=== PATIENT | female | born 1960 | race Caucasian/White ===

== ENCOUNTER → 2023-09-29 16:41 | Outpatient (REF) | payer OTHER, SELFPAY | LOC: RAD 16:41 | PROVIDERS: ATTENDING PHYSICIAN Internal Medicine Rheumatology; FAMILY PHYSICIAN Nurse Practitioner Adult Health | DX: M54.50 Low back pain, unspecified (principal) | CPT/HCPCS: 72114; 72202; 73502 ==

== ENCOUNTER → 2023-10-15 12:47 | Outpatient (REF) | payer OTHER, SELFPAY | LOC: HWRAD 12:47 | PROVIDERS: ATTENDING PHYSICIAN Internal Medicine Rheumatology; FAMILY PHYSICIAN Nurse Practitioner Adult Health | DX: M54.32 Sciatica, left side (principal); M54.50 Low back pain, unspecified; M88.89 Osteitis deformans of multiple sites; M99.84 Other biomechanical lesions of sacral region | CPT/HCPCS: 72193; Q9967 ==

== ENCOUNTER → 2023-10-21 10:42 | Outpatient (REF) | payer OTHER, SELFPAY ==
[2023-10-21 11:08] VITALS: BP 135/83; BP_SYST 82
[2023-10-21 11:46] LABS: INR 1.03; PT 13.6 Sec (11.4-14.6)
[2023-10-21 12:50] VITALS: BP 111/84; BP_SYST 65
[2023-10-21 12:57] VITALS: BP 111/84; BP_SYST 65
[2023-10-21 13:05] VITALS: BP 112/72
== END ==
LOC: RADI 10:42
PROVIDERS: ATTENDING PHYSICIAN Internal Medicine Rheumatology; FAMILY PHYSICIAN Nurse Practitioner Adult Health; REFERRING PHYSICIAN Internal Medicine Hematology & Oncology
DX: C79.89 Secondary malignant neoplasm of other specified sites (principal); C80.1 Malignant (primary) neoplasm, unspecified
CPT/HCPCS: 88305; 20206; 36415; 77012; 85610; 88333; 88341; 88342; 88360; 99152; 99153

== ENCOUNTER → 2023-11-01 09:05 | Outpatient (REF) | payer OTHER, SELFPAY | LOC: RCS 09:05 | PROVIDERS: ATTENDING PHYSICIAN Internal Medicine Hematology & Oncology; FAMILY PHYSICIAN Nurse Practitioner Adult Health | DX: C7A.1 Malignant poorly differentiated neuroendocrine tumors (principal); C78.7 Secondary malignant neoplasm of liver and intrahepatic bile duct; C79.51 Secondary malignant neoplasm of bone | CPT/HCPCS: 93306 ==

== ENCOUNTER → 2023-12-14 15:29 | Outpatient (REF) | payer BC, SELFPAY | LOC: RAD 15:29 | PROVIDERS: ATTENDING PHYSICIAN Internal Medicine Hematology & Oncology; FAMILY PHYSICIAN Nurse Practitioner Adult Health | DX: C78.7 Secondary malignant neoplasm of liver and intrahepatic bile duct (principal); C79.51 Secondary malignant neoplasm of bone; G89.3 Neoplasm related pain (acute) (chronic); C34.80 Malignant neoplasm of overlapping sites of unspecified bronchus and lung; M79.661 Pain in right lower leg; M79.605 Pain in left leg | CPT/HCPCS: 93970 ==

== ENCOUNTER 2024-04-17 13:59 | Outpatient (RCR) | payer BC, SELFPAY | END 2024-04-17 23:59 | disposition home or self-care (01) | LOC: RPT 13:59 | PROVIDERS: ATTENDING PHYSICIAN Nurse Practitioner Family; FAMILY PHYSICIAN Nurse Practitioner Adult Health | DX: R26.89 Other abnormalities of gait and mobility (principal); M62.81 Muscle weakness (generalized); Z73.6 Limitation of activities due to disability; C76.8 Malignant neoplasm of other specified ill-defined sites; C78.7 Secondary malignant neoplasm of liver and intrahepatic bile duct; C79.51 Secondary malignant neoplasm of bone; G89.3 Neoplasm related pain (acute) (chronic); M25.552 Pain in left hip; R20.0 Anesthesia of skin; R26.2 Difficulty in walking, not elsewhere classified | CPT/HCPCS: 97010; 97110; 97112; 97116; 97162; 97530 ==

== ENCOUNTER → 2024-05-08 11:21 | Outpatient (REF) | payer BC, SELFPAY | LOC: PET 11:21 | PROVIDERS: ATTENDING PHYSICIAN Nurse Practitioner Adult Health | DX: C7A.1 Malignant poorly differentiated neuroendocrine tumors (principal) | CPT/HCPCS: 78815; A9552 ==

== ENCOUNTER 2024-05-17 09:54 | Outpatient (RCR) | payer BC, SELFPAY | END 2024-05-17 23:59 | disposition home or self-care (01) | LOC: RPT 09:54 | PROVIDERS: ATTENDING PHYSICIAN Nurse Practitioner Family; FAMILY PHYSICIAN Nurse Practitioner Adult Health | DX: I89.0 Lymphedema, not elsewhere classified (principal); M25.552 Pain in left hip; R26.89 Other abnormalities of gait and mobility; C34.90 Malignant neoplasm of unspecified part of unspecified bronchus or lung; C78.7 Secondary malignant neoplasm of liver and intrahepatic bile duct; C79.51 Secondary malignant neoplasm of bone; G89.3 Neoplasm related pain (acute) (chronic); N39.46 Mixed incontinence; Z73.6 Limitation of activities due to disability | CPT/HCPCS: 97110; 97112; 97140; 97164; 97530 ==

== ENCOUNTER → 2024-06-22 15:33 | Outpatient (REF) | payer BC, SELFPAY | LOC: MRI 3T 15:33 | PROVIDERS: ATTENDING PHYSICIAN Internal Medicine Hematology & Oncology; FAMILY PHYSICIAN Nurse Practitioner Adult Health | DX: C78.7 Secondary malignant neoplasm of liver and intrahepatic bile duct (principal) | CPT/HCPCS: 72197; A9575 ==

== ENCOUNTER 2024-06-28 10:25 | Outpatient (RCR) | payer BC, SELFPAY | END 2024-06-28 23:59 | disposition home or self-care (01) | LOC: RPT 10:25 | PROVIDERS: ATTENDING PHYSICIAN Nurse Practitioner Family; FAMILY PHYSICIAN Nurse Practitioner Adult Health | DX: C78.7 Secondary malignant neoplasm of liver and intrahepatic bile duct (principal); C79.51 Secondary malignant neoplasm of bone; G89.3 Neoplasm related pain (acute) (chronic); M25.552 Pain in left hip; I89.0 Lymphedema, not elsewhere classified; N39.46 Mixed incontinence; Z73.6 Limitation of activities due to disability | CPT/HCPCS: 97110; 97112 ==

== ENCOUNTER → 2024-07-27 08:36 | Outpatient (REF) | payer BC, SELFPAY | LOC: PAVMRI 08:36 | PROVIDERS: ATTENDING PHYSICIAN Specialist; FAMILY PHYSICIAN Nurse Practitioner Adult Health | DX: M51.362 Other intervertebral disc degeneration, lumbar region with discogenic back pain and lower extremity pain (principal) | CPT/HCPCS: 72148 ==

== ENCOUNTER → 2024-08-01 09:12 | Outpatient (REF) | payer BC, SELFPAY | LOC: RAD 09:12 | PROVIDERS: ATTENDING PHYSICIAN Orthopaedic Surgery; FAMILY PHYSICIAN Nurse Practitioner Adult Health | DX: M87.052 Idiopathic aseptic necrosis of left femur (principal) | CPT/HCPCS: 78315; A9503 ==

== ENCOUNTER 2024-10-30 13:52 | Outpatient (RCR) | payer BC, SELFPAY | END 2024-10-30 23:59 | disposition home or self-care (01) | LOC: RPT 13:52 | PROVIDERS: ATTENDING PHYSICIAN Orthopaedic Surgery; FAMILY PHYSICIAN Nurse Practitioner Adult Health | DX: Z47.1 Aftercare following joint replacement surgery (principal); C78.7 Secondary malignant neoplasm of liver and intrahepatic bile duct; Z73.6 Limitation of activities due to disability; M62.89 Other specified disorders of muscle; Z96.642 Presence of left artificial hip joint | CPT/HCPCS: 97110; 97112; 97161; 97530 ==

== ENCOUNTER → 2024-11-22 10:48 | Outpatient (REF) | payer BC, SELFPAY | LOC: WDC 10:48 | PROVIDERS: ATTENDING PHYSICIAN Nurse Practitioner Adult Health | DX: Z12.31 Encounter for screening mammogram for malignant neoplasm of breast (principal) | CPT/HCPCS: 77063; 77067 ==

== ENCOUNTER → 2024-12-06 10:05 | Outpatient (REF) | payer BC, SELFPAY | LOC: PET 10:05 | PROVIDERS: ATTENDING PHYSICIAN Nurse Practitioner Adult Health | DX: C80.1 Malignant (primary) neoplasm, unspecified (principal); C7A.1 Malignant poorly differentiated neuroendocrine tumors | CPT/HCPCS: 78815; A9552 ==

== ENCOUNTER 2024-12-14 14:00 | Outpatient (RCR) | payer BC, SELFPAY | END 2024-12-14 23:59 | disposition home or self-care (01) | LOC: RPT 14:00 | PROVIDERS: ATTENDING PHYSICIAN Orthopaedic Surgery; FAMILY PHYSICIAN Nurse Practitioner Adult Health | DX: Z47.1 Aftercare following joint replacement surgery (principal); C78.7 Secondary malignant neoplasm of liver and intrahepatic bile duct; Z73.6 Limitation of activities due to disability; M62.89 Other specified disorders of muscle; Z96.642 Presence of left artificial hip joint; Z85.05 Personal history of malignant neoplasm of liver | CPT/HCPCS: 97110; 97112; 97140 ==

== ENCOUNTER 2024-12-18 06:21 | Day surgery (SDC) | payer BC, SELFPAY | END 2024-12-18 14:29 | disposition home or self-care (01) | LOC: GI 06:21 | PROVIDERS: ATTENDING PHYSICIAN Internal Medicine Gastroenterology | DX: Z12.11 Encounter for screening for malignant neoplasm of colon (principal); Q43.8 Other specified congenital malformations of intestine; K63.89 Other specified diseases of intestine; Z86.0100 Personal history of colon polyps, unspecified; K63.5 Polyp of colon | CPT/HCPCS: 45380; 88305; 88342 ==

== ENCOUNTER 2024-12-29 06:59 | Outpatient (REF) | payer BC, SELFPAY ==
[2024-12-29] VITALS (12 sets, daily range): BP systolic 53–119; BP diastolic 58–86; BMI 24.8
[2024-12-29 07:27] LABS: Hematocrit 34.7 % (37.0-47.0); Hemoglobin 11.9 g/dL (12.0-16.0); Mean Corp Hgb Conc. 34.3 g/dL (33.0-37.0); Mean Corpuscular Hgb 30.7 pg (27.0-31.0); Mean Corpuscular Volume 89.7 fL (81.0-99.0); Mean Platelet Volume 8.9 fL (7.4-10.4); Platelet Count 292 10^3/uL (130-400); Red Blood Cell Count 3.87 10^6/uL (4.20-5.40); Red Cell Dist. Width 15.4 % (11.5-14.5); White Blood Cell Count 6.9 10^3/uL (4.8-10.8)
[2024-12-29 07:45] LABS: INR 0.96; PT 13.1 Sec (11.4-14.6)
== END 2024-12-29 12:10 | disposition home or self-care (01) ==
LOC: RADI 06:59
PROVIDERS: Physician Assistant; ATTENDING PHYSICIAN Internal Medicine Hematology & Oncology; FAMILY PHYSICIAN Nurse Practitioner Adult Health
DX: C7B.8 Other secondary neuroendocrine tumors (principal); C7A.1 Malignant poorly differentiated neuroendocrine tumors
CPT/HCPCS: 88307; 36415; 47000; 76942; 85027; 85610; 88333; 88341; 88342; 99152; 99153

== ENCOUNTER → 2025-01-29 10:46 | Outpatient (REF) | payer BC, SELFPAY | LOC: RCS 10:46 | PROVIDERS: ATTENDING PHYSICIAN Internal Medicine Hematology & Oncology; FAMILY PHYSICIAN Nurse Practitioner Adult Health | DX: C78.7 Secondary malignant neoplasm of liver and intrahepatic bile duct (principal); C79.51 Secondary malignant neoplasm of bone; G89.3 Neoplasm related pain (acute) (chronic); M25.552 Pain in left hip; R26.89 Other abnormalities of gait and mobility; C80.1 Malignant (primary) neoplasm, unspecified; M54.50 Low back pain, unspecified; C7A.1 Malignant poorly differentiated neuroendocrine tumors; I89.0 Lymphedema, not elsewhere classified | CPT/HCPCS: 93005 ==

== ENCOUNTER → 2025-03-15 09:48 | Outpatient (REF) | payer BC, SELFPAY | LOC: HWRAD 09:48 | PROVIDERS: ATTENDING PHYSICIAN Nurse Practitioner Adult Health; REFERRING PHYSICIAN Internal Medicine Hematology & Oncology | DX: N95.0 Postmenopausal bleeding (principal) | CPT/HCPCS: 76830; 76856 ==

== ENCOUNTER 2025-04-09 15:43 | Emergency (ER) | payer BC, SELFPAY ==
[2025-04-09 15:47] VITALS: BP 109/76
[2025-04-09 16:40] LABS: Hematocrit 34.5 % (37.0-47.0); Hemoglobin 11.2 g/dL (12.0-16.0); Mean Corp Hgb Conc. 32.5 g/dL (33.0-37.0); Mean Corpuscular Volume 90.1 fL (81.0-99.0); Nucleated Red Blood Cells % 0 %; Platelet Count 253 10^3/uL (130-400); Red Cell Dist. Width 14.2 % (11.5-14.5)
[2025-04-09 16:44] LABS: ALT (SGPT) 24 U/L (0-35); AST (SGOT) 35 U/L (14-36); Albumin 3.8 g/dl (3.5-5.0); Alkaline Phosphatase 54 U/L (38-126); Blood Urea Nitrogen 16 mg/dl (7-17); Calcium 9.4 mg/dl (8.4-10.2); Carbon Dioxide 24 mmol/L (22-30); Chloride 108 mmol/L (98-107); Glucose 92 mg/dl (70-99); Potassium 4.0 mmol/L (3.5-5.1); Sodium 138 mmol/L (135-145); Total Protein 7.3 g/dl (6.3-8.2); eGFR > 60.00
--- NOTE | 2025-04-09 18:32 | ED.GENMED ---
History of Present Illness
General
Chief Complaint: Musculo-Skeletal Complaint
Source: patient
Exam Limitations: none
Time Seen by Provider: 04/09/25 17:44
Nursing documentation reviewed up to this point in time: agreed with
History of Present Illness
History of Present Illness:
Patient is a 64-year-old female with history of metastatic neuroendocrine cancer who presents to the emergency department with concerns of abnormal outpatient MRI. Patient states she has been suffering with approximately 6 months of ongoing
left-sided neck discomfort. She mentioned this to her oncologist who performed an MRI which showed concern for possible inflammatory versus septic arthritis/osteomyelitis. Patient states she had an MRI performed this past however was
contacted today by her oncologist with results and ultimately sent to the emergency department for further evaluation.
Patient states she feels very well. She denies any fever or chills. She denies any neurologic symptoms such as numbness/tingling or weakness in extremities. No chest pain, shortness of breath, abdominal pain.
She does have known metastatic spread of cancer to spine.
Patient is currently on chemotherapy for her neuroendocrine cancer. Patient did have a thoracic spinal surgery many years ago after an injury requiring hardware placement.
Review of Systems
Review of Systems
Allergies reviewed?: Yes
All Other Systems: ROS reviewed and negative except as documented in HPI and ROS
Phy Exam
Physical Exam
Physical Exam:
Vitals: Patient's vital signs are stable. Afebrile
General: Patient is very well appearing, no acute distress. Nontoxic appearing
Skin: Warm and dry, no rashes or lesions.
Head: Normocephalic, atraumatic
Eyes: Sclera nonicteric. EOMs intact. No nystagmus.
Throat: Protecting airway
Neck: Normal ROM, no midline tenderness. Very mild reproducible tenderness in left paraspinal cervical region. No meningismus. No erythema, warmth, or rash of neck.
Cardiac: Regular rate and rhythm, no murmurs.
Pulm: Normal respiratory effort, no wheezes, rales, rhonchi heard on exam
Abdomen: Abdomen soft and nontender.
Extremities: No evidence of cyanosis or edema. Moving all extremities without difficulty. Strength 5/5 in bilateral upper lower extremities and neurovascularly intact.
Neuro: AAOx3. CN II-XII grossly intact. No focal neurologic deficits.
Psychiatric: Normal affect.
Course
Orders/Labs/Results
Orders:
Orders
04/09/25 16:04
C-Reactive Protein Urgent
Comment: ADDON
Complete Blood Count/With Diff Urgent
Comprehensive Metabolic Panel Urgent
Erythrocyte Sed Rate Urgent
Comment: ADDON
Blood Culture Urgent
ATIF Source: Blood/Venous
Specimen Description:
04/09/25 18:04
Add On- LAB Urgent
Tests Added?: esr, crp
04/09/25 20:07
Cervical Spine wo Contrast CT [CT Cervical Spine W/o Iv Contr] Urgent
Comment: per neurosurgery; concern for C2 osteo on MRI
Reason For Exam: Neck pain; hx metastatic cancer
Abnormal Lab Results
04/09/25
16:04
RBC 3.83 L 10^6/uL
(4.20-5.40)
Hgb 11.2 L g/dL
(12.0-16.0)
Hct 34.5 L %
(37.0-47.0)
MCHC 32.5 L g/dL
(33.0-37.0)
Absolute Monos (auto) 1.0 H 10^3/uL
(0.1-0.6)
Lymphocytes % 16.5 L %
(20.5-51.1)
Monocytes % 13.1 H %
(1.7-9.3)
ESR 66 H mm/hour
(0-20)
Chloride 108 H mmol/L
(98-107)
Creatinine 0.5 L mg/dL
(0.6-1.0)
C-Reactive Protein 16.60 H mg/L
(0.0-10.00)
04/09/25 16:04
04/09/25 16:04
Vital Signs
Initial and Last Documented VS:
Initial Vital Signs
Temp Pulse Resp BP Pulse Ox
98.5 F 89 18 109/76 96
04/09/25 15:47 04/09/25 15:47 04/09/25 15:47 04/09/25 15:47 04/09/25 15:47
Last Documented Vital Signs
Temp Pulse Resp BP Pulse Ox
97.6 F 72 18 136/85 97
04/10/25 00:10 04/10/25 00:10 04/10/25 00:10 04/10/25 00:10 04/10/25 00:10
MDM/Problems Addressed
Differential Diagnosis Includes:
Not limited to: Metastatic spread, muscular strain/spasm, osteoarthritis, less likely septic arthritis/osteomyelitis, etc.
MDM/Problems Addressed:
64-year-old female presenting with 6 months � 1 year of left sided neck discomfort with abnormal MRI outpatient. Patient with known metastatic neuroendocrine cancer with mets to spine. She had outpatient MRI ordered by oncology which revealed
findings in cervical spine with concern for possible inflammatory arthritis/septic arthritis or osteomyelitis.
This pain has been ongoing for the past six months/one year. No recent acute worsening. She has no associated fever or infectious symptoms. No neurologic symptoms, including weakness or numbness in extremities.
Vitals and physical exam exam as above. Patient very well appearing, afebrile and non-toxic. She has no midline spinal tenderness in cervical region. No erythema or warmth of neck. She is neurologically intact with full strength in bilateral upper
and lower extremities and normal sensation.
Overall, very low clinical suspicion for infectious process today based on history and physical exam. In addition, lab work is uremarkable. There is no leukocytosis or left shift.
However � given MRI read and associated risk factors, will discuss with neurosurgery.
Update: Discussed case at length with neurosurgeon, Dr. Landry. He personally reviewed MRI imaging and feels appearance is very vague � he has much lower suspicion for infectious process, possible metastatic spread, however ultimately recommends
CT scan of cervical spine for further evaluation as well as inflammatory markers. Will order CT scan and plan to discuss with neurosurg.
Update: both ESR and CRP somewhat elevated, however, nonspecific, especially with known malignancy. CT results discussed with neurosurgery. They ultimately recommend discharge home with very low suspicion for infectious process today. She appears
very well and nontoxic. She has remained afebrile without any neurologic deficits.
Plan to discharge patient with continued follow with oncology as well as neurosurgery. Patient very comfortable with plan and eager for discharge. Return precautions discussed, including infectious symptoms, neurological compromise, etc. Case
discussed at length with attending physician.
Chronic conditions affecting care:
Neuroendocrine CA with metastases to spine
Acute Exacerbation and/or Progression of Chronic Illness:
Progressive metastatic disease to spine
*Radiology
Radiology exam reviewed: radiology read reviewed
*Pulse Oximetry
SaO2: 96
Oxygen Mode of Delivery: Room air
Patient hypoxic: no
*EKG
Interpreted by ED Provider?: NA
*Expediter Clerk Interpretation
Rate: Expediter Clerk- N/A
*Critical Care Note
Total Time (30-74mins, 75-104mins- exclusive of procedures): Not Applicable
Data Reviewed
Review of Other/Old Records Reveals: Radiology Studies (Outpatient MRI of cervical spine reviewed)
Patient Management
Discussion with other providers: Windows Desktop Engineer (Case discussed with neurosurgery, Dr. Landry)
Escalation/DeEscalation of care consider admission/obs:
Discussed with neurosurgery�feel stable for discharge home with outpatient management. Very low suspicion for infectious process
ED Attending Note
-
Portions of this chart may have been created with voice recognition software.� Occasional wrong word or��sound alike� substitutions may have occurred due to the inherent limitations of voice recognition software.
Discharge Plan
Departure
Patient Disposition: Home (Routine Discharge)
Date of Disposition: 04/09/25
Time of Disposition: 23:48
Patient with high blood pressure during this ER visit?: No
Condition: Good
Discharge Problem:
Neck pain
Prescriptions:
No Action
acetaminophen [Tylenol] 325 mg Tablet
650 mg PO BID PRN (Reason: pain)
cyanocobalamin (vitamin B-12) [Vitamin B-12] 1,000 mcg Tablet
1,000 mcg PO DAILY
apple cider vinegar 500 mg Tablet
500 mg PO DAILY
fjppjcz-zxffuxqjq-kqln 333-133-5 mg Tablet
1 tab PO DAILY
cholecalciferol (vitamin D3) [Vitamin D3] 25 mcg (1,000 unit) Tablet
25 mcg PO DAILY
turmeric root extract 500 mg Capsule
500 mg PO DAILY
polyethylene glycol 3350 [Miralax] 17 gram Powder In Packet
17 g PO DAILY
ibuprofen 200 mg Tablet
400 mg PO Q6H PRN (Reason: pain)
Alecensa 150 mg Capsule
600 mg PO BID
Referrals:
Mary Gaspar CRNP [Family Provider, Internal Medicine]
Segundo Landry DO [Active, Neurosurgery]
Nj Bhatt CRNP [Specified Professional Personl, Hematology / Oncology] - Tomorrow
Activity Restrictions/Additional Instructions:
PLEASE RETURN TO THE EMERGENCY DEPARTMENT WITH ANY FEVER, CHILLS, REDNESS OR SWELLING/INTRACTABLE PAIN OF NECK, NEUROLOGIC CHANGES INCLUDING WEAKNESS OR NUMBNESS IN EXTREMITIES, WORSENING IN CURRENT SYMPTOMS, OR ANY OTHER CONCERNS
- As discussed�we do not believe your neck pain is infectious in nature. However�this will require very close follow-up with oncology and neuro surgery to ensure symptoms improved/for further evaluation. This may require further imaging/testing.
- Please continue to take medications as prescribed. You can take Tylenol and/or Motrin for pain. You can apply topical lidocaine patches or heating pads.
- Follow-up with your oncologist tomorrow for further management
Monitor your symptoms closely and return to the emergency department any acute worsening/new symptoms or any signs of infection
Interventions
Interventions:
*Risk Screen - Suicide Last Done: 04/09/25 15:47
*General Assessment Last Done: 04/09/25 15:47
*Neglect/Abuse Screening Last Done: 04/09/25 15:47
*ED- Fall Risk Assessment Last Done: 04/09/25 20:00
*ED COVID-19 Vaccine History Last Done: 04/09/25 20:00
*Nursing Disposition Last Done: 04/10/25 00:15
ED-Musculoskeletal Assessment Last Done: 04/09/25 20:00
Discharge Date and Time
Discharge Date/Time: 04/10/25 00:15
Print Language: INDIAN
[2025-04-09 19:14] LABS: C-Reactive Protein 16.60 mg/L (0.0-10.00)
[2025-04-09 19:58] VITALS: BP 119/79; BMI 27.0
[2025-04-09 22:13] VITALS: BP 117/83
[2025-04-10 00:10] VITALS: BP 136/85
== END 2025-04-10 00:15 | disposition home or self-care (01) ==
LOC: EMR 15:43
PROVIDERS: Emergency Medicine; EMERGENCY PHYSICIAN Emergency Medicine; FAMILY PHYSICIAN Nurse Practitioner Adult Health
DX: M54.2 Cervicalgia (principal); C7A.8 Other malignant neuroendocrine tumors; C7B.03 Secondary carcinoid tumors of bone
CPT/HCPCS: 99284; 72125; 80053; 85025; 85652; 86140; 87040

== ENCOUNTER → 2025-05-02 11:58 | Outpatient (REF) | payer BC, SELFPAY ==
[2025-05-02 12:03] LABS: Glucose 104 mg/dl (70-99)
== END ==
LOC: PET 11:58
PROVIDERS: ATTENDING PHYSICIAN Internal Medicine Hematology & Oncology
DX: C7A.1 Malignant poorly differentiated neuroendocrine tumors (principal); C80.1 Malignant (primary) neoplasm, unspecified; C78.7 Secondary malignant neoplasm of liver and intrahepatic bile duct; C79.51 Secondary malignant neoplasm of bone; G89.3 Neoplasm related pain (acute) (chronic); M25.552 Pain in left hip; R26.89 Other abnormalities of gait and mobility; M54.50 Low back pain, unspecified; I89.0 Lymphedema, not elsewhere classified
CPT/HCPCS: 36415; 78815; 82947; A9552

== ENCOUNTER 2025-05-17 16:57 | Outpatient (RCR) | payer BC, SELFPAY | END 2025-05-17 23:59 | disposition home or self-care (01) | LOC: RPT 16:57 | PROVIDERS: ATTENDING PHYSICIAN Internal Medicine Hematology & Oncology; FAMILY PHYSICIAN Nurse Practitioner Adult Health | DX: R26.2 Difficulty in walking, not elsewhere classified (principal); Z73.6 Limitation of activities due to disability; M62.81 Muscle weakness (generalized); R20.0 Anesthesia of skin; C22.8 Malignant neoplasm of liver, primary, unspecified as to type; C79.51 Secondary malignant neoplasm of bone; G62.0 Drug-induced polyneuropathy; Z92.21 Personal history of antineoplastic chemotherapy | CPT/HCPCS: 97112; 97162 ==

== ENCOUNTER 2025-06-11 10:21 | Outpatient (RCR) | payer MEDICARE, OTHER, SELFPAY | END 2025-06-11 23:59 | disposition home or self-care (01) | LOC: RPT 10:21 | PROVIDERS: ATTENDING PHYSICIAN Internal Medicine Hematology & Oncology; FAMILY PHYSICIAN Nurse Practitioner Adult Health | DX: C22.8 Malignant neoplasm of liver, primary, unspecified as to type (principal); G62.0 Drug-induced polyneuropathy; Z73.6 Limitation of activities due to disability; M62.81 Muscle weakness (generalized); C79.51 Secondary malignant neoplasm of bone | CPT/HCPCS: 97112; 97140; 97530 ==

== ENCOUNTER 2025-07-18 10:23 | Outpatient (RCR) | payer MEDICARE, OTHER, SELFPAY | END 2025-07-18 23:59 | disposition home or self-care (01) | LOC: RPT 10:23 | PROVIDERS: ATTENDING PHYSICIAN Internal Medicine Hematology & Oncology; FAMILY PHYSICIAN Nurse Practitioner Adult Health | DX: C22.8 Malignant neoplasm of liver, primary, unspecified as to type (principal); G62.0 Drug-induced polyneuropathy; Z73.6 Limitation of activities due to disability; M62.81 Muscle weakness (generalized); C79.51 Secondary malignant neoplasm of bone; R39.15 Urgency of urination | CPT/HCPCS: 97110; 97112; 97140; 97164; 97530 ==